=== PATIENT | female | born 1970 | race Caucasian/White ===

== ENCOUNTER 2021-05-15 11:59 | Emergency (ER) | payer MEDICAID, SELFPAY ==
[2021-05-15 13:03] VITALS: BP 133/89; PULSE 82; RESP 19; TEMP 36.8; O2SAT 95; BMI 35.1
--- NOTE | 2021-05-15 15:30 | CTR_ITS ---
PROCEDURE INFORMATION: Exam: CT Head Without Contrast Exam date and time: 05/15/2021 3:30 PM Age: 50 years old Clinical indication: Pain; Headache not specified TECHNIQUE: Imaging protocol: Computed tomography of the head without contrast. Radiation optimization: All CT scans at this facility use at least one of these dose optimization techniques: automated exposure control; mA and/or kV adjustment per patient size (includes targeted exams where dose is matched to clinical indication); or iterative reconstruction. COMPARISON: No relevant prior studies available. RADIATION DOSE METRICS: Total DLP (mGy-cm): 756.04 FINDINGS: Brain: Unremarkable. No hemorrhage. No significant white matter disease. No edema. Cerebral ventricles: No ventriculomegaly. Paranasal sinuses: Air-fluid level in the right maxillary sinus, consistent with sinusitis. The included paranasal sinuses are otherwise unremarkable. Mastoid air cells: Unremarkable as visualized. No mastoid effusion. Bones/joints: Unremarkable. No acute fracture. Soft tissues: Unremarkable. CT/CT head wo con* [id number] IMPRESSION: 1. Air-fluid level in the right maxillary sinus, consistent with sinusitis. 2. No acute intracranial abnormality demonstrated. Radiation Dose CTDIVOL = (mGy): DLP = 756.04 (mGy-cm)
[2021-05-15] MEDS: ketorolac 30 mg/mL INJ 15 MG IVP (16:17)
[2021-05-15] MEDS: diphenhydrAMINE 50 mg/mL SDV 1mL 25 MG IVP (16:17)
[2021-05-15] MEDS: acetaminophen 325 mg Tablet 650 MG PO (16:18)
[2021-05-15] MEDS: sodium chloride 0.9% 1,000 ML 999 ML IV (16:18)
[2021-05-15 16:19] VITALS: BP 125/96; PULSE 77; RESP 15; O2SAT 99
--- NOTE | 2021-05-15 16:38 | ED_ITS ---
HPI - Headache General: Chief Complaint: Headache Stated Complaint: Reoccuring headaches Time Seen by Provider: 05/15/21 15:26 History of Present Illness: HPI Narrative: 50-year-old female who comes to the ER complaining of posterior headache on and off for the past 2 months. She says this episode has lasted 3 to 4 days and throbs and causes her some nausea and vomiting. She has no visual symptoms. No neck stiffness or pain. Offers no other complaints today. She says she takes Tylenol at home for it with improvement of her pain and that her headache currently is only minor. MD elicited complaint: headache Onset description: gradually Location: occipital Severity: mild Quality & Timing: aching Exacerbating factors: none Relieving factors: NSAIDs Context: occurred at rest Associated symptoms: Reports nausea and vomiting; Deny chest pain, confusion, cough, eye pain, neck stiffness, photophobia, pre- syncope or rash Review of Systems General: Reports: 10 or more systems reviewed and unremarkable except in HPI and below Const: Denies: fatigue Eyes: Denies: change in vision, blurry vision or eye redness ENMT: Denies: throat pain, swelling of lips/tongue, ear or mastoid pain or nasal congestion Card: Denies: chest pain or pre-syncope Resp: Denies: dyspnea, productive cough or non-productive cough GI: Reports: nausea and vomiting; Denies: abdominal pain : Denies: flank pain, difficulty voiding, urinary frequency or urinary urgency Musc: Denies: neck pain, back pain, extremity pain, joint pain, joint redness, limited range of motion or muscle weakness Skin/Breast: Denies: rash, pruritus, erythema, skin pain or skin tenderness Neuro: Reports: headache(s); Denies: numbness in extremities, weakness in extremities, sensory changes, difficulty walking, dizziness, confusion or Slurred speech present Psych: Denies: anxiety or depression Endo: Denies: polyuria All/Imm: Denies: urticaria, throat swelling or tongue swelling PFSH ED PFSH: Medical History (Updated 05/15/21 @ 18:19 by Manuel Millard MD) HTN (hypertension) Tachycardia Social History Smoking and tobacco status: former smoker Physical Exam Const: COMMON NORMALS: no acute distress, average body habitus, patient oriented x3, no limitations, healthy appearing, alert and well nourished GENERAL APPEARANCE: cooperative, comfortable, well kempt and well developed ORIENTATION/CONSCIOUSNESS: Yes awake, Yes oriented to person, Yes oriented to place and Yes oriented to time HENMT: COMMON NORMALS: normocephalic, external ears normal and Normal external nose present HEAD & SCALP: normal to inspection and normocephalic NOSE: Normal external nose present EXTERNAL EAR: Yes external ears normal MOUTH: Normal oral and palatal mucosa present THROAT: posterior oropharynx normal Eye: COMMON NORMALS: Equal, round and reactive pupils present and EOMs intact bilaterally GENERAL EYE: appearance normal, both eyes and all related structures PUPIL: Yes Equal, round and reactive pupils present DIRECT OPHTHALMOSCOPY: No photophobia Neck/C-Spine: COMMON NORMALS: full ROM, no lymphadenopathy, no meningeal signs and no JVD GENERAL: Yes normal visual inspection Lymph: LYMPHATIC: no lymphadenopathy noted Chest: COMMONS NORMALS: normal inspection of the chest and normal palpation of entire chest wall Resp: COMMON NORMALS: normal respiratory effort, No retractions, No use of accessory muscles, clear to auscultation bilaterally and percussion normal EFFORT & INSPECTION: Yes able to speak in complete sentences AUSCULTATION: clear to auscultation bilaterally PERCUSSION: percussion normal Cardio: COMMON NORMALS: no JVD, regular rate, regular rhythm, S1 normal heart sound present, S2 normal heart sound present and Peripheral pulses 2+ throughout RATE: regular rate RHYTHM: regular rhythm HEART SOUNDS: S1 normal heart sound present and S2 normal heart sound present PERIPHERAL PULSES: Peripheral pulses 2+ throughout GI: COMMON NORMALS: Normal to inspection, nondistended, normoactive bowel sounds present, Soft to palpation, non-tender and no masses INSPECTION: Yes normal to inspection PALPATION: Yes Soft to palpation : COMMON NORMALS: Yes no CVA tenderness BLADDER/KIDNEY EXAM: Yes no CVA tenderness Back/Pelvis: COMMON NORMALS: no CVA tenderness, thoracic and lumbar spine normal to inspection, no thoracic nor lumbar tenderness and thoraco-lumbar ROM normal Extremity: COMMON NORMALS: normal to inspection, full ROM, capillary refill normal, no joint enlargement and no pedal edema GENERAL: Yes normal exam except as noted Neuro: COMMON NORMALS: patient oriented x3, CN's II-XII intact bilaterally, m oves all extremities, no focal motor deficits, no sensory deficits noted and gait normal SENSORIUM/ORIENTATION: Yes alert, Yes oriented to person, Yes oriented to place and Yes oriented to time MENINGEAL SIGNS: Yes no meningeal signs Psych: COMMON NORMALS: mental status grossly normal, Normal thought process present, cooperative, normal affect and speech normal APPEARANCE: Yes well kempt ATTITUDE: Yes calm SPEECH: Yes normal speech THOUGHT PROCESS: Normal thought process present Skin: COMMON NORMALS: no rashes or lesions noted GENERAL SKIN EXAM: no rashes or lesions noted Course Vital Signs: Vital signs: Vital Signs Temperature 98.2 F 05/15/21 13:03 Pulse Rate 77 05/15/21 16:19 Respiratory Rate 15 05/15/21 16:19 Blood Pressure 125/96 05/15/21 16:19 Pulse Oximetry 99 05/15/21 16:19 MDM - Headache MDM Narrative: Medical decision making narrative: The patient was given a migraine cocktail with IV fluids, Benadryl, Tylenol, and Toradol with resolution of her headache. CT of her head shows a sinus infection. We will discharge her with Augmentin. Lab Data: Labs: Lab Results 05/15/21 05/15/21 Range/Units 15:55 15:55 WBC 8.0 (4.0-10.0) 10^3/ uL RBC 5.03 (4.1-5.3) 10^6/u L Hgb 15.4 H (11.5-15.3) g/dL Hct 46.9 (37.0-47.0) % MCV 93.2 (81-99) fL MCH 30.6 (28.0-34.0) pg MCHC 32.8 (30.0-36.0) g/dL RDW 12.6 (12.1-15.1) % Plt Count 220 (130-400) 10^3/c mm MPV 12.4 H (7.4-10.4) fL Neut % (Auto) 60.4 % Lymph % (Auto) 27.3 % Ramsey % (Auto) 9.4 % Eos % (Auto) 2.0 % Baso % (Auto) 0.5 % Neut # (Auto) 4.85 (1.8-7.7) 10^3/u L Lymph # (Auto) 2.2 (0.8-4.8) 10^3/u L Ramsey # (Auto) 0.8 (0.2-0.9) 10^3/u L Eos # (Auto) 0.2 (0.0-0.8) 10^3/u L Baso # (Auto) 0.0 (0.0-0.1) 10^3/u L Nucleated RBC % (a uto) 0 % Nucleated RBCs # 0.0 /100WBC Sodium 141 (136-145) mmol/L Potassium 4.1 (3.5-5.1) mmol/L Chloride 106 (98-107) mmol/L Carbon Dioxide 26 (22-29) mmol/L Anion Gap 13.1 (5-19) BUN 9 (6-20) mg/dL Creatinine 0.7 (0.5-0.9) mg/dL GFR Calculation 87.9 L (90-130) mL/min Glucose 81 (65-115) mg/dL Calculated Osmolal ity 290 (285-295) mOsm/k g Calcium 8.3 L (8.5-10.5) mg/dL Total Bilirubin 0.3 (0.15-1.2) mg/dL AST 25 (0-32) U/L ALT 34 H (0-33) U/L Alkaline Phosphata se 109 H (35-105) IU/L Total Protein 6.6 (6.6-8.7) g/dL Albumin 3.7 (3.5-5.2) g/dL Globulin 2.9 (1.3-4.6) g/dL Discharge Plan Discharge Patient Disposition: Home Clinical Impression: Headache, Sinusitis Condition: Stable Prescriptions: New Augmentin 875-125 mg tablet 1 tab PO Q12H Qty: 20 RF: 0 No Action Tylenol Extra Strength 500 mg Tablet 1,000 mg PO PRN RF: 0 metoprolol succinate 25 mg tablet extended release 24 hr 25 mg PO QAM RF: 0 Bromfed DM 2-30-10 mg/5 mL syrup See Rx Instructions .ROUTE .COMPLEX RF: 0 Discharge Orders: Discharge ED (Routine); Ordered 05/15/21 Ordered By: Manuel Millard Discharge Diet: Advance as tolerated Discharge Activity: Resume usual activity Patient Instructions: Sinusitis (ED), Acute Headache (ED), Opioid Safety Activity Restrictions/Additional Instructions: You have a headache. Please continue to take Tylenol and ibuprofen [id number] to help with your symptoms and follow-up with your primary care physician in a few days. Return to the ER with worsening symptoms at any time. You also have a sinus infection and I have prescribed an antibiotic for you for 10 days. Please take that as well and discuss it with your primary care physician. You may return to the ER at any time with worrisome or worsening symptoms. Coding Level of Care Code ED Auxiliary Operator for Greyson Batista Exam Comprehensive
[2021-05-15 16:40] LABS: Basophils % 0.5 %; Eosinophils # 0.2 10^3/uL (0.0-0.8); Hematocrit 46.9 % (37.0-47.0); Hemoglobin 15.4 g/dL (11.5-15.3); Lymphocytes # 2.2 10^3/uL (0.8-4.8); Lymphocytes % 27.3 %; Mean Corpuscular HGB Conc 32.8 g/dL (30.0-36.0); Mean Corpuscular Hemoglobin 30.6 pg (28.0-34.0); Mean Corpuscular Volume 93.2 fL (81-99); Mean Platelet Volume 12.4 fL (7.4-10.4); Monocytes # 0.8 10^3/uL (0.2-0.9); Monocytes % 9.4 %; Neutrophils # 4.85 10^3/uL (1.8-7.7); Neutrophils % 60.4 %; Nucleated Red Blood Cells % 0 %; Platelet Count 220 10^3/cmm (130-400); Red Blood Count 5.03 10^6/uL (4.1-5.3); Red Cell Distribution Width 12.6 % (12.1-15.1)
[2021-05-15 17:12] LABS: Albumin Level 3.7 g/dL (3.5-5.2); Alkaline Phosphatase 109 IU/L (35-105); Blood Urea Nitrogen 9 mg/dL (6-20); Calcium 8.3 mg/dL (8.5-10.5); Carbon Dioxide 26 mmol/L (22-29); Chloride 106 mmol/L (98-107); Globulin 2.9 g/dL (1.3-4.6); Glomerular Filtration Rate 87.9 mL/min (90-130); Glucose 81 mg/dL (65-115); Osmolality Calculated 290 mOsm/kg (285-295); Sodium 141 mmol/L (136-145); Total Bilirubin 0.3 mg/dL (0.15-1.2); Total Protein 6.6 g/dL (6.6-8.7)
[2021-05-15 18:05] LABS: Anion Gap 13.1 (5-19); Aspartate Amino Transferase 25 U/L (0-32); Potassium 4.1 mmol/L (3.5-5.1)
[2021-05-15 18:07] LABS: Alanine Aminotransferase 34 U/L (0-33)
[2021-05-15 18:28] VITALS: BP 116/80; PULSE 89; O2SAT 98
== END 2021-05-15 18:27 | disposition home or self-care (01) ==
PROVIDERS: Emergency Provider Family Medicine
DX: J32.9 Chronic sinusitis, unspecified (principal); I10 Essential (primary) hypertension
CPT/HCPCS: 70450; 80053; 85025; 96361; 96374; 96375; 99283; J1200; J1885; J7030

== ENCOUNTER → 2021-11-08 11:20 | Outpatient (BNVA) | payer MEDICAID, SELFPAY | PROVIDERS: PCP Family Medicine; Visit Provider Family Medicine | DX: I10 Essential (primary) hypertension (principal); Z13.220 Encounter for screening for lipoid disorders; Z13.6 Encounter for screening for cardiovascular disorders | CPT/HCPCS: 80048; 80061 ==

== ENCOUNTER → 2022-08-02 14:24 | Outpatient (BNVA) | payer MEDICAID, SELFPAY | PROVIDERS: PCP Family Medicine; Visit Provider Family Medicine | DX: I10 Essential (primary) hypertension (principal); J30.9 Allergic rhinitis, unspecified; J30.1 Allergic rhinitis due to pollen; R51.9 Headache, unspecified; G44.209 Tension-type headache, unspecified, not intractable; K21.9 Gastro-esophageal reflux disease without esophagitis; Z13.220 Encounter for screening for lipoid disorders; Z13.6 Encounter for screening for cardiovascular disorders; Z53.20 Procedure and treatment not carried out because of patient's decision for unspecified reasons | CPT/HCPCS: 80053; 80061 ==

== ENCOUNTER → 2023-06-05 09:27 | Outpatient (BNVA) | payer MEDICAID, SELFPAY | PROVIDERS: PCP Family Medicine; Visit Provider Family Medicine | DX: I10 Essential (primary) hypertension (principal); M25.569 Pain in unspecified knee; J30.9 Allergic rhinitis, unspecified; J30.1 Allergic rhinitis due to pollen; R00.0 Tachycardia, unspecified; M25.561 Pain in right knee; M25.562 Pain in left knee; Z13.1 Encounter for screening for diabetes mellitus; Z13.220 Encounter for screening for lipoid disorders; Z13.6 Encounter for screening for cardiovascular disorders | CPT/HCPCS: 80053; 80061 ==

== ENCOUNTER → 2023-11-20 09:48 | Outpatient (BNVA) | payer MEDICAID, SELFPAY | PROVIDERS: PCP Family Medicine; Visit Provider Family Medicine | DX: I10 Essential (primary) hypertension (principal); M25.569 Pain in unspecified knee; J30.9 Allergic rhinitis, unspecified; J06.9 Acute upper respiratory infection, unspecified; J98.8 Other specified respiratory disorders; B97.89 Other viral agents as the cause of diseases classified elsewhere; J30.1 Allergic rhinitis due to pollen; R00.0 Tachycardia, unspecified; M25.561 Pain in right knee; M25.562 Pain in left knee | CPT/HCPCS: 80048; 87400; 87426 ==

== ENCOUNTER → 2024-05-21 12:27 | Outpatient (BNVA) | payer MEDICAID, SELFPAY | PROVIDERS: PCP Family Medicine; Visit Provider Family Medicine | DX: I10 Essential (primary) hypertension (principal) | CPT/HCPCS: 80053; 80061 ==

== ENCOUNTER → 2024-09-27 14:27 | Outpatient (BNVA) | payer MEDICAID, SELFPAY | PROVIDERS: PCP Family Medicine; Visit Provider Nurse Practitioner | DX: J02.9 Acute pharyngitis, unspecified (principal) | CPT/HCPCS: 87071; 87880 ==

== ENCOUNTER → 2025-01-30 08:40 | Outpatient (BNVA) | payer MEDICAID, SELFPAY | PROVIDERS: PCP Family Medicine; Visit Provider Family Medicine | DX: Z12.4 Encounter for screening for malignant neoplasm of cervix (principal) | CPT/HCPCS: 87624 ==

== ENCOUNTER 2025-03-20 13:57 | Outpatient (CLI) | payer MEDICAID, SELFPAY ==
--- NOTE | 2025-03-20 14:00 | MM_ITS ---
WS: [id number] BILATERAL SCREENING DIGITAL TOMOSYNTHESIS MAMMOGRAM WITH CAD HISTORY: Z12.39 - Encounter for other screening for malignant neop... COMPARISON: None available. Bilateral CC and MLO views with tomosynthesis and synthetic mammography submitted. Computer aided detection analyzed. Breast composition: The breasts are almost entirely fatty. No suspicious masses, microcalcifications or architectural distortion. Benign scattered calcifications within each breast. No suspicious mass or grouping of calcifications. MM/MM [facility] tomosynthesis [id number] IMPRESSION: BI-RADS: 2 - Benign. FOLLOW UP: 1 Year Follow-up
== END 2025-03-20 13:58 | disposition home or self-care (01) ==
PROVIDERS: PCP Family Medicine; Visit Provider Family Medicine
DX: Z12.31 Encounter for screening mammogram for malignant neoplasm of breast (principal); R92.313 Mammographic fatty tissue density, bilateral breasts; R92.1 Mammographic calcification found on diagnostic imaging of breast
CPT/HCPCS: 77063; 77067

== ENCOUNTER → 2025-06-25 08:46 | Outpatient (BNVA) | payer MEDICAID, SELFPAY | PROVIDERS: PCP Family Medicine; Visit Provider Family Medicine | DX: I10 Essential (primary) hypertension (principal) | CPT/HCPCS: 80048; 80061 ==